=== PATIENT | female | born 1955 | race Caucasian/White ===

== ENCOUNTER 2024-12-26 08:38 | Outpatient (REF) | payer MEDICARE, MEDICAID, SELFPAY ==
--- NOTE | ~2024-12-26 | XR_ITS ---
EXAMINATION: XR HIP, RIGHT CLINICAL INFORMATION: M25.559 - Pain in unspecified hip COMPARISON: None available. TECHNIQUE: AP pelvis, and 2 views of the right hip. FINDINGS: No fracture, dislocation, or suspicious bone lesions. There is been a total left hip arthroplasty. Femoral and acetabular components appear well seated in anatomic alignment. No periprosthetic complication. There is moderate arthritis of the right hip joint with axial migration. There are mild to moderate sized subcapital and marginal acetabular productive osteophytes. There is subchondral sclerosis and cystic changes of the acetabulum. There is mild over coverage of the posterior acetabulum, which can be associated with AMELIA. The femoral head maintains gross normal contour without definite evidence of AVN. Mild arthritis noted in both SI joints and within the lower lumbar spine. XR/XR hip RT min 2V IMPRESSION: 1. No acute bony abnormalities. 2. Moderate arthritic changes of the right hip joint, with an appearance which could represent either inflammatory or degenerative arthritis. 3. Left hip replacement without complication. Electronically signed by: Tone Ribera MD 12/29/2024 09:38 AM EDT
== END 2024-12-26 08:39 | disposition home or self-care (01) ==
LOC: HO.HOSX 08:38
PROVIDERS: Visit Provider Physician Assistant
DX: M25.551 Pain in right hip (principal); M16.11 Unilateral primary osteoarthritis, right hip
CPT/HCPCS: 73502; 99202

== ENCOUNTER 2024-12-26 13:27 | Outpatient (AMB) | payer MEDICARE, MEDICAID, SELFPAY ==
--- NOTE | 2024-12-26 13:39 | MHC.OFFVIS ---
Vital Signs 12/26/24 13:47 Height 5 ft 2 in Weight 140 lb BMI 25.6 Intake Visit Reasons: New Pt - Right hip pain Intake Note: Marlena is a 69 year old female who presents today as a new patient for a evaluation of her right hip pain. Patient reports ongoing pain for about a year that is getting steadily worse. Patient shows her pain is located in her groin area and radiates to the lateral aspect of the hip and lower back. She notices that her pain is worse when she is driving, prolong sitting, and with walking on a incline. Patient tried and failed icing and Tylenol, finds some relief with Aleve. Hx of LT RENEE with NE. She is interested in discussing an injection today. Allergies No Known Allergies Allergy (Verified 12/26/24 13:46) Medication List - Last Reconciled 12/26/24 by Morena Burch PA-C cyclobenzaprine 10 mg PO BEDTIME lisinopril 40 mg PO DAILY pantoprazole 40 mg PO DAILY HPI HPI New Pt - Right hip pain: Details: Ms. Deras is a 69-year-old female who presents to the office today for evaluation of right hip pain. She reports that the pain has been going on for the past year and is steadily progressing. She reports that the pain is located in the groin and radiates to the lateral aspect of her hip and occasionally to her lower back. She reports her pain is worse with driving, prolonged sitting and walking on an incline. She has tried Aleve and does have some relief with this. She has a history of a left total hip arthroplasty with Dr. Foster. [facility] Medical History (Updated 12/26/24 @ 14:13 by Morena Burch PA-C) Osteoarthritis of right hip Surgical History (Updated 12/26/24 @ 13:47 by SILVINA Kay) Hx of cholecystectomy Hx of appendectomy History of hip replacement Social History (Updated 12/26/24 @ 13:47 by SILVINA Kay) Patient Tobacco Use Status: Current everyday Tobacco user Current occupational status: unemployed and retired Review of Systems Const All systems reviewed & are unremarkable except as noted in HPI and below Physical Exam Vital Signs: BMI result Body Mass Index 25.6 Const General: cooperative, healthy appearing and no acute distress Resp Effort & Inspection: normal respiratory effort and able to speak in complete sentences Cardio Rate: regular rate Peripheral pulses: Peripheral pulses 2+ throughout Skin Lesions: no lesions Rashes: no rashes Extrem Other: Right hip: Limited internal and external rotation. Able to perform straight leg raise. No tenderness to palpation over the greater trochanteric bursa. 4/5 strength with resisted hip flexion, knee extension, abduction, and abduction. NVI. Assessment & Plan Assessment & Plan (1) Osteoarthritis of right hip: Code(s): M16.11 - Unilateral primary osteoarthritis, right hip Category: Medical Plan Ms. Deras is a 69-year-old female who presents to the office today for evaluation of right hip pain. She reports that the pain has been going on for the past year and is steadily progressing. She reports that the pain is located in the groin and radiates to the lateral aspect of her hip and occasionally to her lower back. She reports her pain is worse with driving, prolonged sitting and walking on an incline. She has tried Aleve and does have some relief with this. She has a history of a left total hip arthroplasty with Dr. Foster. While in the office today, we discussed surgical versus conservative treatment options for the right hip osteoarthritis. Patient is looking to try conservative treatment options at this time as she is not ready to proceed with surgery. She would like to 1st try an intra-articular cortisone injection. I have placed an order for this to be performed at the hospital under imaging guidance. After the injection the patient will follow up as needed when she is ready to move forward with right total hip arthroplasty. X-rays of the right hip which were obtained while in the office today and were reviewed by me, Morena Burch PA-C, revealed severe osteoarthritis right hip. Orders: Orders XR hip RT min 2V Today M25.559 - Pain in unspecified hip FL Guided Asp Inj Major Jt RT Today M16.11 - Unilateral primary osteoarthritis, right hip Coding Level of Care Code New Pt Level 4 (74366) Diagnoses Osteoarthritis of right hip M16.11
[2024-12-26 13:47] VITALS: BMI 25.6
== END 2024-12-26 13:59 | disposition home or self-care (01) ==
LOC: HO.HOS 13:27
PROVIDERS: PCP Nurse Practitioner; Visit Provider Physician Assistant
DX: M16.11 Unilateral primary osteoarthritis, right hip (principal)
CPT/HCPCS: 99204

== ENCOUNTER → 2024-12-26 13:35 | Outpatient (BNV) | payer MEDICARE, MEDICAID, SELFPAY | PROVIDERS: Visit Provider Radiology Diagnostic Radiology | DX: M16.11 Unilateral primary osteoarthritis, right hip (principal) | CPT/HCPCS: 73502 ==

== ENCOUNTER 2025-01-22 13:28 | Outpatient (REF) | payer MEDICARE, MEDICAID, SELFPAY ==
--- NOTE | ~2025-01-22 | FL_ITS ---
EXAMINATION: Fluoroscopy guided right steroid injection. CLINICAL INDICATION: Severe right hip pain. TECHNIQUE: Following explaining fluoroscopy-guided right steroid injection procedure, benefits and risk, a written consent was obtained. Patient was placed supine on fluoroscopy table and marker placed along the anterior aspect of the right hip joint. The marked area in the skin was cleaned and draped in usual sterile manner. 1% lidocaine was injected at puncture site. A 20-gauge spinal needle was injected from the skin into the right hip joint along the lateral femoral neck and 2 mL of nonionic contrast injected. A single image was obtained for documentation. Subsequently 80 mg of Depo-Medrol, 5 mL of 1% lidocaine and 5 mm saline was injected as 11 mL of combination and needle withdrawn. Complete hemostasis achieved at puncture site. Simple dressing applied post procedure. Patient targeted procedure extremely well. FINDINGS/ FL/FL Guided Asp Inj Major Jt RT IMPRESSION: On single AP image of the right hip there is severe loss of right hip joint space with periarticular spurring. No acute fracture, lytic or scarring process seen. Successful fluoroscopy-guided right hip steroid injection performed without immediate complications. Dose area product: 494. Fluoroscopy time: 24 seconds. Electronically signed by: Keegan Muller MD 01/23/2025 04:04 PM EDT
[2025-01-22] MEDS: iohexoL 300 MG/ML 50 ML INFUS..BTL INTRAARTIC ×2 (14:46→14:48)
[2025-01-22] MEDS: methylPREDNISolone acetate 80 MG VIAL INTRAARTIC (14:50)
[2025-01-22] MEDS: Lidocaine HCl 1 % 20 ML VIAL 8 ML SUBCUT (14:52)
== END 2025-01-22 13:29 | disposition home or self-care (01) ==
LOC: HO.XRAY 13:28
PROVIDERS: Visit Provider Physician Assistant
DX: M16.11 Unilateral primary osteoarthritis, right hip (principal)
CPT/HCPCS: 20610; 77002; 99212; J1010; J2003; Q9967

== ENCOUNTER → 2025-01-22 13:30 | Outpatient (BNV) | payer MEDICARE, MEDICAID, SELFPAY | PROVIDERS: Visit Provider Radiology Diagnostic Radiology | DX: M25.551 Pain in right hip (principal) | CPT/HCPCS: 20610; 77002 ==

== ENCOUNTER 2025-01-22 14:45 | Outpatient (AMB) | payer MEDICARE, MEDICAID, SELFPAY ==
--- NOTE | 2025-01-22 14:50 | A.OFFVIS_ITS ---
Intake Visit Reasons: OV- discuss RENEE surgery Intake Note: Viktoria is a 69 year old female who presents today to discuss a Right RENEE, She was last seen with Morena who referred her. Right Hip injection was done today at the hospital. She has previously had the Left Hip Replaced. Allergies No Known Allergies Allergy (Verified 01/22/25 14:51) HPI HPI OV- discuss RENEE surgery: Details: This is a 61-year-old woman who underwent a left hip replacement at 46 years ago did very well. She comes in today complaining of right hip pain. She recently had a steroid injection and is going for dental work so there is no possibility of a hip replacement in the next few months but she wanted to discuss it nevertheless and see if she could start thinking about the process. She describes moderate pain with activities such as walking and getting into and out of an automobile but it is not as bad as her left it was before her previous hip replacement. [facility] Medical History (Updated 12/26/24 @ 14:13 by Morena Burch PA-C) Osteoarthritis of right hip Surgical History (Updated 12/26/24 @ 13:47 by SILVINA Kay) Hx of cholecystectomy Hx of appendectomy History of hip replacement Social History (Updated 12/26/24 @ 13:47 by SILVINA Kay) Patient Tobacco Use Status: Current everyday Tobacco user Current occupational status: unemployed and retired Physical Exam Extrem Other: No obvious gait disturbance. Positive impingement test work maintained internal rotation while in flexion approximately 15 degrees. Results Reviewed Results Reviewed: I personally reviewed relevant radiographs. Moderate right hip osteoarthritis Left RENEE in expected post operative position with no hardware complications or evidence of loosening Assessment & Plan Assessment & Plan (1) Osteoarthritis of right hip: Code(s): M16.11 - Unilateral primary osteoarthritis, right hip Category: Medical Plan: 61-year-old with moderate osteoarthritis of the right hip. This is symptomatic. She recently got a hip injection. No treatment warranted at this time. We will see how helpful it is. She can follow up in 3 months. Coding Level of Care Code Est Pt Level 3 (61372) Diagnoses Osteoarthritis of right hip M16.11
== END 2025-01-22 15:15 | disposition home or self-care (01) ==
LOC: HO.HOS 14:46
PROVIDERS: Visit Provider Orthopaedic Surgery
DX: M16.11 Unilateral primary osteoarthritis, right hip (principal)
CPT/HCPCS: 99213